=== PATIENT | male | born 1940 | race Caucasian/White ===

== ENCOUNTER 2020-06-15 17:36 | Emergency (ER) | payer MEDICARE ==
[~2020-06-15 17:36] MED LIST: NEURONTIN100 MG PO; NORCO 5-325 TA1 EACH PO
[2020-06-15] MEDS ORDERED: NORCO 5-325 TA1 EACH PO (20:57)
[2020-06-15] MEDS ORDERED: CEPHALEXIN500 MG PO (20:59)
== END 2020-06-15 21:30 | disposition home or self-care (01) ==
LOC: FER 17:36
DX: L03.115 Cellulitis of right lower limb (principal); E11.9 Type 2 diabetes mellitus without complications; I50.9 Heart failure, unspecified; Z88.5 Allergy status to narcotic agent; Z79.899 Other long term (current) drug therapy
CPT/HCPCS: 73564; 96372; J1100

== ENCOUNTER 2020-11-14 18:12 | Emergency (ER) | payer MEDICARE ==
[~2020-11-14 18:12] MED LIST changes: +CEPHALEXIN500 MG PO
[2020-11-14 19:18] LABS: BASOPHIL 0.9 % (0-2); EOSINOPHIL 3.8 % (0-7); HCT 32.4 % (42.0-52.0); HGB 10.7 g/dl (13.2-18.0); LYMPHOCYTE 24.3 % (15-48); MCH 29.2 pg (25.0-31.0); MCV 88.3 fL (78.0-100.0); MONOCYTE 11.4 % (0-12); MPV 10.3 fL (6.0-9.5); NEUTROPHIL 59.5 % (41-80); NRBC 0; PLT 208 K/uL (150-400); RBC 3.67 M/uL (4.70-6.00); RDW 14.3 % (11.5-14.0); WBC 6.8 K/uL (4.0-10.5)
[2020-11-14 19:38] LABS: ALBUMIN 3.3 g/dL (3.4-5.0); BILIRUBIN - TOTAL 0.2 mg/dL (0.2-1.0); BUN/CREAT RATIO (CALC) 16.4 RATIO; CREATININE 1.16 mg/dL (0.67-1.17); GLOBULIN (CALCULATION) 3.4 g/dL; POTASSIUM 3.5 mmol/L (3.5-5.1); TOTAL PROTEIN 6.7 g/dL (6.4-8.2)
[2020-11-14 19:58] LABS: BILIRUBIN NEGATIVE (NEGATIVE); BLOOD NEGATIVE Ery/uL (NEGATIVE); CLARITY CLEAR (CLEAR); COLOR YELLOW (YELLOW); GLUCOSE (U) TRACE mg/dL (NORMAL); LEUKOCYTES NEGATIVE Leu/uL (NEGATIVE); NITRITE NEGATIVE (NEGATIVE); PROTEIN TRACE (LOW) mg/dL (NEGATIVE); UROBILINOGEN 0.2 mg/dL (0.2-1.0); pH 5.5 (5.0-9.0)
[2020-11-14] MEDS ORDERED: PERCOCET 5-3251 EACH PO (23:46)
[2020-11-14] MEDS ORDERED: MOBIC7.5 MG PO (23:46)
== END 2020-11-15 00:10 | disposition home or self-care (01) ==
LOC: FER 18:12
PROVIDERS: Emergency Medicine Emergency Medical Services; Internal Medicine
DX: S70.11XA Contusion of right thigh, initial encounter (principal); E11.9 Type 2 diabetes mellitus without complications; I10 Essential (primary) hypertension; Z95.1 Presence of aortocoronary bypass graft; Z20.822 Contact with and (suspected) exposure to COVID-19; W19.XXXA Unspecified fall, initial encounter; Y92.009 Unspecified place in unspecified non-institutional (private) residence as the place of occurrence of the external cause
CPT/HCPCS: 36415; 70450; 73502; 73700; 80053; 81003; 85025; 87088; J1100; J1170; J1885; J2270; J2405; U0002

== ENCOUNTER 2021-08-18 11:33 | Emergency (ER) | payer MEDICARE ==
[~2021-08-18 11:33] MED LIST changes: +ASPIRIN EC81 MG PO; +BACTRIM DS TAB1 EACH PO; +FLOMAX0.4 MG PO; +HYDRALAZINE25 MG PO; +HYDROXYZINE HCL25 MG PO; +ISOSORBIDE MONO60 MG PO; +KATERZIA1 MG/1 ML PO; +LASIX40 MG PO; +LIPITOR20 MG PO; +METOPROLOL SUCC50 MG PO; +MOBIC7.5 MG PO; +NITROGLYCERIN0.4 MG SL; +NORVASC5 MG PO; +PERCOCET 5-3251 EACH PO; +RANEXA1000 MG PO; +RANEXA500 MG PO; +STOOL SOFTENER100 MG PO; +TRAMADOL HCL50 MG PO
== END 2021-08-18 14:00 | disposition expired ==
LOC: FER 11:33
DX: I46.9 Cardiac arrest, cause unspecified (principal); I25.2 Old myocardial infarction; I25.10 Atherosclerotic heart disease of native coronary artery without angina pectoris; I11.0 Hypertensive heart disease with heart failure; I50.9 Heart failure, unspecified; E11.9 Type 2 diabetes mellitus without complications; Z95.1 Presence of aortocoronary bypass graft
CPT/HCPCS: 92950